=== PATIENT | female | born 1975 | race Caucasian/White ===

== ENCOUNTER 2020-01-02 20:39 | Emergency (ER) | payer BC ==
[~2020-01-02] VITALS: Ht 165.1 cm; Wt 80.7 kg
[2020-01-02 20:44] VITALS: Ht 165.1 cm; Wt 80.7 kg
[2020-01-02 21:26] VITALS: BP 151/94
== END 2020-01-02 21:26 | disposition home or self-care (01) ==
LOC: ED 20:39
DX: R04.0 Epistaxis (principal)